=== PATIENT | female | born 1960 | race Caucasian/White ===

== ENCOUNTER 2016-04-13 06:44 | Inpatient (IN) ==
--- NOTE | 2016-04-13 07:43 | Discharge Summary ---
<Saniya Borjas - Last Filed: 04/13/16 10:08> Date of Encounter: 04/13/16 - Discharge Diagnosis (1) Loosening of shoulder joint prosthesis Priority: Primary Status: Acute Qualifiers: Encounter type: subsequent encounter Qualified Code(s): T84.038D - Mechanical loosening of other internal prosthetic joint, subsequent encounter; Z96.619 - Presence of unspecified artificial shoulder joint (2) Diabetes Status: Acute Qualifiers: Diabetes mellitus type: type 2 Diabetes mellitus complication status: without complication Diabetes mellitus correction insulin use: unspecified moth exterminator insulin use status Qualified Code(s): E11.9 - Type 2 diabetes mellitus without complications (3) Asthma Status: Chronic Qualifiers: Asthma severity: unspecified severity Asthma complication type: uncomplicated Qualified Code(s): J45.909 - Unspecified asthma, uncomplicated (4) CVA (cerebral vascular accident) Status: Chronic Qualifiers: CVA mechanism: unspecified Qualified Code(s): I63.9 - Cerebral infarction, unspecified (5) Hyperlipidemia Status: Chronic Qualifiers: Hyperlipidemia type: unspecified Qualified Code(s): E78.5 - Hyperlipidemia , unspecified (6) Hypertension Status: Chronic Qualifiers: Hypertension type: unspecified secondary hypertension Qualified Code(s): I15.9 - Secondary hypertension, unspecified; I15 - Secondary hypertension (7) Morbid obesity with BMI of 45.0-49.9, adult Status: Chronic (8) Obstructive sleep apnea Status: Chronic - Discharge Medications Home Medications: Albuterol Sulfate [Albuterol Inhaler] 2 puff IH Q4HR PRN 09/17/15 [History] Aspirin Enteric Coated [Aspirin EC] 81 mg PO DAILY 09/17/15 [History] Atorvastatin [Lipitor] 20 mg PO HS 09/17/15 [History] Clopidogrel [Plavix] 75 mg PO DAILY 09/17/15 [History] Dicyclomine [Bentyl] 20 mg PO QID 09/17/15 [History] Gabapentin [Neurontin] 300 mg PO TID 09/17/15 [History] Insulin Human Regular [HumuLIN R] 20 unit SQ QPM 09/17/15 [History] Insulin NPH, HUMAN [HumuLIN N] 50 unit SQ BID 09/17/15 [History] Liraglutide [Victoza 3-Jose A] 1.8 mg SQ DAILY 09/17/15 [History] Sertraline [Zoloft] 50 mg PO HS 09/17/15 [History] OxyCODONE Immed Rel [Roxicodone 5 MG] 5 - 10 mg PO Q6HR PRN #40 tablet 04/13/16 [Rx] Verapamil HCl [Verapamil ER] 240 mg PO DAILY 04/13/16 [History] Allergies/Adverse Reactions: Allergies lisinopril Allergy (Verified 04/13/16 08:34) Anaphylaxis fluticasone [From Flonase] Adverse Reaction (Verified 04/13/16 08:34) Nose Bleed metformin [From Glucophage] Adverse Reaction (Verified 04/13/16 08:34) Diarrhea Primary care physician: Karen Castorena - Patient Status Disposition: Home, Self-Care Condition: Good - Discharge Instructions Follow Up With: Karen Castorena [Primary Care Provider] - - Hospital Course Hospital course: Ms. Quinn is a 55 year old female - Time Spent with Patient Total time spent providing and/or coordinating discharge services: <Mckinley Serrano - Last Filed: 04/14/16 06:28> Date of Encounter: 04/14/16 Time of Encounter: 06:28 - Discharge Diagnosis (1) Diabetes Priority: Primary Status: Acute Qualifiers: Diabetes mellitus type: type 2 Diabetes mellitus complication status: without complication Diabetes mellitus moth exterminator insulin use: unspecified moth exterminator insulin use status Qualified Code(s): E11.9 - Type 2 diabetes mellitus without complications (2) Morbid obesity with BMI of 45.0-49.9, adult Priority: Secondary Status: Chronic (3) Loosening of shoulder joint prosthesis Priority: Primary Status: Acute Qualifiers: Encounter type: subsequent encounter Qualified Code(s): T84.038D - Mechanical loosening of other internal prosthetic joint, subsequent encounter; Z96.619 - Presence of unspecified artificial shoulder joint (4) Hypertension Priority: Secondary Status: Chronic Qualifiers: Hypertension type: unspecified secondary hypertension Qualified Code(s): I15.9 - Secondary hypertension, unspecified; I15 - Secondary hypertension (5) Hyperlipidemia Priority: Secondary Status: Chronic Qualifiers: Hyperlipidemia type: unspecified Qualified Code(s): E78.5 - Hyperlipidemia , unspecified (6) CVA (cerebral vascular accident) Priority: Secondary Status: Chronic Qualifiers: CVA mechanism: unspecified Qualified Code(s): I63.9 - Cerebral infarction, unspecified (7) Obstructive sleep apnea Priority: Secondary Status: Chronic (8) Asthma Priority: Secondary Status: Chronic Qualifiers: Asthma severity: unspecified severity Asthma complication type: uncomplicated Qualified Code(s): J45.909 - Unspecified asthma, uncomplicated Primary care physician: Karen Castorena - Patient Status Functional capacity at discharge: independent ambulation Overall status at discharge: patient is progressing back to baseline - Hospital Course Hospital course: Ms. Quinn is a 55 year old female The patient had an uneventful postoperative course. They received antibiotics and physical therapy and were discharged in stable condition. There will follow -up in the office in 2 weeks. - Time Spent with Patient Total time spent providing and/or coordinating discharge services:
[2016-04-13] MEDS ORDERED: Albuterol 2.5 MG/3 ML NEBULIZER IH ONE (07:44)
[2016-04-13] MEDS ORDERED: CeFAZolin Pre 2,000 MG/100 ML 2,000 MG/100 ML BAG IVPB ONE (07:44)
[2016-04-13] MEDS ORDERED: Ringers Solution, Lactated 1,000 ML IVC SCH ×2 (07:45→11:32)
--- NOTE | 2016-04-13 08:00 | History & Physical Report ---
Date of Encounter: 04/13/16 Time of Encounter: 08:00 24 Hour HP Update - Instructions Instructions: If the History and Physical is less than 30 days old and was completed prior to A.M. admission and or procedure and has NOT been updated on calendar day of procedure please complete this update prior to performing procedure. - Update Patient reports changes in Medical Condition: No Changes in assessment/condition: No Changes in Medication: No Preop tests/diagnostics Reviewed: Yes Surgery Remains Indicated: Yes Consent for Planned Operative Procedure(s) Verified: Yes - Pre-Operative Checklist Preoperative Checklist Indicated: No Prophylactic Antibiotic Ordered: Yes Is VTE Prophylaxis Indicated?: Yes
[2016-04-13] MEDS ORDERED: CeFAZolin Pre 3,000 MG/100 ML 3,000 MG/100 ML BAG IVPB ONE (08:07)
[2016-04-13] MEDS ORDERED: *HR* FentaNYL (PF) 100 MCG/2 ML VIAL ONE (08:12)
[2016-04-13] MEDS ORDERED: *HR* Propofol 200 MG/20 ML VIAL IVP ONE (08:13)
[2016-04-13] MEDS ORDERED: *HR* Midazolam HCl 2 MG/2 ML VIAL ONE (08:13)
[2016-04-13] MEDS ORDERED: Lidocaine -MPF 2% 2 ML VIAL ONE (08:19)
--- NOTE | 2016-04-13 08:48 | Anesthesia Evaluation PreOp ---
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) Other Medical History: Diabetes Type II (Accu check 234), Other (Morbid Obesity , Anxiety, Depression) Anesthesia History: No Prior Anesthetic Complications Alcohol Use: none Drug use: none Medications and Allergies Albuterol Sulfate [Albuterol Inhaler] 2 puff IH Q4HR PRN 09/17/15 [History] Aspirin Enteric Coated [Aspirin EC] 81 mg PO DAILY 09/17/15 [History] Atorvastatin [Lipitor] 20 mg PO HS 09/17/15 [History] Clopidogrel [Plavix] 75 mg PO DAILY 09/17/15 [History] Dicyclomine [Bentyl] 20 mg PO QID 09/17/15 [History] Gabapentin [Neurontin] 300 mg PO TID 09/17/15 [History] Insulin Human Regular [HumuLIN R] 20 unit SQ QPM 09/17/15 [History] Insulin NPH, HUMAN [HumuLIN N] 50 unit SQ BID 09/17/15 [History] Liraglutide [Victoza 3-Jose A] 1.2 mg SQ DAILY 09/17/15 [History] Sertraline [Zoloft] 50 mg PO HS 09/17/15 [History] OxyCODONE Immed Rel [Roxicodone 5 MG] 5 - 10 mg PO Q6HR PRN #40 tablet 04/13/16 [Rx] Allergies lisinopril Allergy (Verified 04/13/16 08:34) Anaphylaxis fluticasone [From Flonase] Adverse Reaction (Verified 04/13/16 08:34) Nose Bleed metformin [From Glucophage] Adverse Reaction (Verified 04/13/16 08:34) Diarrhea - Meds/Allergy Pre-op Review Medications Reviewed: Yes Allergies Reviewed: Yes Beta Blockers on Current Med List: No Anesthesia Results - Labs Laboratory Tests 04/08/16 04/08/16 10:20 10:20 Hgb 13.0 Hct 41.1 Plt Count 222 Sodium 140 Potassium 4.5 BUN 17 Creatinine 0.87 - Imaging EKG: report reviewed (SR First Degree AV Block) Anesthesia Exam O2 Sat Height 1.68 m Height 1.68 m Height 1.68 m Weight 130.635 kg Weight 130.635 kg Weight 130.635 kg O2 Sat by Pulse Oximetry 95 O2 Sat by Pulse Oximetry 95 O2 Sat by Pulse Oximetry 95 Vital Signs Temp Pulse Resp BP Pulse Ox 98.1 F 85 18 143/72 95 04/13/16 07:18 04/13/16 07:18 04/13/16 07:18 04/13/16 07:18 04/13/16 07:18 Height: 5'6 Weight: 288 lbs NPO (# of Hours): MN - HEENT Pupil (Motor): Pupils equal, EOMI Mallampati: III Denture Type: Upper: Complete Oral Opening: Less than or equal to 3 - CAR SPOTTER LOC: Oriented CAR SPOTTER Motor: Normal RUE, Normal RLE, Normal Face, Deficit LUE (slight weakness), Deficit LLE (slight weakness) CAR SPOTTER Sensory: Normal: RUE, LUE, RLE, LLE, Face - Cardiac Rhythm: Regular Murmur: None JVD: No Carotid Bruit: No - Pulmonary Breath Sounds: bilateral Clear Respiratory Effort: Symmetrical Anesthesia Assess/Plan ASA Score: 3 (MO HTN DM MORE) Modified Stuart Scale for Level of Consciousness: Cooperative, oriented, and tranquil Anesthetic Plan: General, Regional Monitoring Plan: Standard Monitors Recovery Plan: PACU (Discussed GA and RA, Agrees to to proceed)
[2016-04-13] MEDS ORDERED: Tetracaine/PF 20 MG/2 ML AMPUL SPINA ONE (09:06)
[2016-04-13] MEDS ORDERED: Ondansetron 4 MG/2 ML VIAL ONE (09:35)
[2016-04-13] MEDS ORDERED: Ondansetron 4 MG/2 ML VIAL IVP ONE (09:55)
[2016-04-13] MEDS ORDERED: *HR* HYDROmorphone (PF) 1 MG/ML SYRINGE IVP PRN ×2 (09:55→11:32)
[2016-04-13] MEDS ORDERED: *HR* Labetalol 100 MG/20 ML MDV IVP PRN (09:55)
[2016-04-13] MEDS ORDERED: *HR* Promethazine 25 MG/ML VIAL IVP PRN (09:55)
--- NOTE | 2016-04-13 09:55 | Anesthesia Procedures ---
Date of Encounter: 04/13/16 Time of Encounter: 09:53 Procedures: Anesthesia - Nerve Block Procedure Date: 04/13/16 Time: 09:00 Allergies/Adv Reactions: Allergies lisinopril Allergy (Verified 04/13/16 08:34) Anaphylaxis fluticasone [From Flonase] Adverse Reaction (Verified 04/13/16 08:34) Nose Bleed metformin [From Glucophage] Adverse Reaction (Verified 04/13/16 08:34) Diarrhea Pre-op Diagnosis: left shoyulder painful hardware Surgical Procedure: ldft shoulder revision Checklist: Correct Patient Identifier, Correct procedure, History checked Correct side: Left Blood Thinner: Yes Monitor Applied: EKG, BP, Pulse Oximetry Supplemental Oxygen via Nasal Cannula (L/min): 2 Sedation: Versed (mg): 2 Sedation: Fentanyl (mcg): 100 Indication: Post Op Analgesia Block Type: Supraclavicular Catheter placed: No Sterile Technique: Yes Ultrasound used: Yes Anatomy identified: Yes Visual spread of Local: Yes Neuro Stimulation: No Blood on Needle Aspiration: No Smooth Injection of Local: Yes Pain with Injection of Local: No Prep: Chlorhexadine Needle: 22 x 50 mm Stimuplex Local: Other (0.375 bupivicaine) Volume (cc): 30 Number of Attempts: 1 Complications: None/effective block Vitals: see nurses notes
--- NOTE | 2016-04-13 10:39 | Orthopedic Operative Note ---
Date of procedure: 04/13/16 Pre-op diagnosis: painful unstable left hemiarthroplasty Post-op diagnosis: same Procedure: Procedure: Left Revision Total Shoulder replacement reverse Estimated blood loss: 400 cc Hardware:Arthrex baseplate small, 36 lateral glenosphere, 8 stem, 6 metal, 3 constrained Procedural Notes:unstable hemiarthroplasty Operative procedure: The patient was brought to the operating room and placed on the operating room table. The patient was placed in the modified beachchair position. All pressure points were padded appropriately. And the head was stabilized in the neutral position. The operative extremity was prepped and draped in the sterile surgical fashion. The patient received IV antibiotics prior to skin incision. A standard deltopectoral approach was made to the operative shoulder through old incision. Incision was made to the skin and subcutaneous tissue,hemo stasis was obtained with Bovie cautery. Using careful blunt dissection the cephalic vein was identified and mobilized medially. The deltopectoral interval was developed and the clavipectoral fascia was incised. An extensive debridement was performed, and the shoulder was dislocated. Cultures were obtained Using an osteotome to clear out the soft tissue, an attempt at removal was performed this was a well fixed stem. This required a small osteotome at the proximal portion. Stem was removed without incident. 2 super cables were passed around the proximal humerus to gain fixation of the osteotomy. Anterior posterior Bankart retractors proceeded to expose the glenoid. The glenoid guide was seated the centering hole was made the glenoid was reamed with the appropriate small reamer. The glenoid baseplate was seated and secured and locked in place with the locking screws 4.5 and 6.5 cortical screw. The baseplate was irrigated and dried 36 lateral glenosphere was seated and secured. Attention was then turned to the humeral side. The humerus was reamed and broached up to its appropriate size in 20 degrees of retroversion. Trial reduction found the shoulder to be relocatable. Trial components were removed, real implants were cemented in place. Trial reduction found the shoulder to be stable with the appropriate 6 metal and 3 constrained Chantal. The trial implants were removed the real implants were seated and secured in the shoulder was reduced. The patient had excellent motion and excellent stability no shuck. The deep tissue was irrigated with pulse irrigation deltopectoral interval was closed with #2 PDS . Superficially the subcutaneous tissue was closed with 0 PDS suture, the skin was closed with Dermabond and skin mayte. The patient placed sterile dressing, postoperative brace extubated and transferred to the recovery room in stable condition. Anesthesia: GETA Surgeon: Mckinley Serrano Condition: stable Disposition: PACU
[2016-04-13 11:21] LABS: Hematocrit 39.2 % (35.3-44.9); Hemoglobin 12.4 g/dL (11.5-15.4)
--- NOTE | 2016-04-13 11:31 | Anesthesia Evaluation Post Op ---
Date of Encounter: 04/13/16 Time of Encounter: 11:30 - Vital Signs Vital Signs: Vital Signs/O2 Sat/Glucose, Most Current Temp Pulse Resp BP Pulse Ox 04/13/16 11:20 97.2 F L 85 18 135/77 98 04/13/16 11:10 89 18 138/76 96 04/13/16 11:00 93 18 153/68 96 04/13/16 10:50 97.2 F L 96 18 162/70 92 L 04/13/16 09:17 92 16 167/81 98 04/13/16 09:06 87 16 167/78 100 04/13/16 08:20 18 143/72 95 04/13/16 07:54 98.1 F 85 18 143/72 95 - Lungs Lungs: Clear Ascult./Percussion - Airway Airway: Non-obstructed - Cardiovascular Regular Rate - Mental Status Mental Status: Alert & Oriented, Answers Appropriately - Pain Pain Scale: 0 - Nausea Vomiting Nausea Vomiting: Not Present - Hydration Hydration: Ice chips - Discharge PostOp Status: Transfer Patient to floor
[2016-04-13] MEDS ORDERED: Acetaminophen 325 MG TABLET PO PRN (11:32)
[2016-04-13] MEDS ORDERED: Dextrose Gel 15 GM PO PRN ×2 (11:32)
[2016-04-13] MEDS ORDERED: Naloxone 0.4 MG/ML INJ IVP PRN (11:32)
[2016-04-13] MEDS ORDERED: Ondansetron 4 MG/2 ML VIAL IVP PRN (11:32)
[2016-04-13] MEDS ORDERED: *HR* Dextrose 50 % in Water (Syg) 50 ML SYRINGE IVP PRN (11:32)
[2016-04-13] MEDS ORDERED: Sennosides 8.6 MG TABLET PO PRN (11:32)
[2016-04-13] MEDS ORDERED: MOM Conc 10 ML UD.LIQ PO PRN (11:32)
[2016-04-13] MEDS ORDERED: D5% in Water 1,000 ML IV PRN (11:32)
[2016-04-13] MEDS ORDERED: Albuterol Neb 1.25 MG/3 ML VIAL IH ONE (11:32)
[2016-04-13] MEDS ORDERED: Temazepam 15 MG CAPSULE PO PRN (11:32)
[2016-04-13] MEDS ORDERED: *HR* OxyCODONE Immed Rel 5 MG TABLET PO PRN (11:32)
[2016-04-13] MEDS: Aspirin Enteric Coated 81 MG Tablet PO SCH (11:57)
[2016-04-13] MEDS: Liraglutide [Victoza 3-Pak] 1.2 MG SQ SCH (12:46)
[2016-04-13] MEDS: Gabapentin 300 MG CAPSULE PO SCH ×3 (12:47→21:15)
[2016-04-13] MEDS ORDERED: Insulin NPH 100 UNIT/ML (x5UNIT) SQ ONE (13:30)
[2016-04-13] MEDS: Insulin LISPRO 300 UNITS/3 ML VIAL SQ SCH ×2 (13:52→16:56)
[2016-04-13] MEDS: ceFAZolin 3,000 MG in D5% in Water 100 ML IVPB SCH (15:35)
[2016-04-13] MEDS ORDERED: Insulin Regular, Human 100 UNIT/ML SQ SCH (17:00)
[2016-04-13] MEDS: *HR* Enoxaparin 30 MG/0.3 ML SYRINGE SQ SCH (17:01)
[2016-04-13] MEDS ORDERED: *HR* Enoxaparin 30 MG/0.3 ML SYRINGE SQ SCH (18:00)
[2016-04-13] MEDS ORDERED: Insulin LISPRO 300 UNITS/3 ML VIAL SQ SCH (21:00)
[2016-04-13] MEDS: *HR* OxyCODONE Immed Rel 5 MG TABLET PO PRN (21:15)
[2016-04-14] MEDS: ceFAZolin 3,000 MG in D5% in Water 100 ML IVPB SCH (00:33)
[2016-04-14] MEDS: *HR* OxyCODONE Immed Rel 5 MG TABLET PO PRN (02:54)
[2016-04-14 06:03] LABS: Hematocrit 36.1 % (35.3-44.9); Hemoglobin 11.6 g/dL (11.5-15.4)
[2016-04-14] MEDS: *HR* Enoxaparin 30 MG/0.3 ML SYRINGE SQ SCH (06:08)
--- NOTE | 2016-04-14 06:29 | Orthopedics Progress Note ---
Date of Encounter: 04/14/16 Time of Encounter: 06:29 - Assessment and Plan (1) Diabetes Current Visit: Yes Status: Acute Qualifiers: Diabetes mellitus type: type 2 Diabetes mellitus complication status: without complication Diabetes mellitus mcfp insulin use: unspecified mcfp insulin use status Qualified Code(s): E11.9 - Type 2 diabetes mellitus without complications (2) Morbid obesity with BMI of 45.0-49.9, adult Current Visit: Yes Status: Chronic (3) Loosening of shoulder joint prosthesis Current Visit: Yes Status: Acute Qualifiers: Encounter type: subsequent encounter Qualified Code(s): T84.038D - Mechanical loosening of other internal prosthetic joint, subsequent encounter; Z96.619 - Presence of unspecified artificial shoulder joint (4) Hypertension Current Visit: Yes Status: Chronic Qualifiers: Hypertension type: unspecified secondary hypertension Qualified Code(s): I15.9 - Secondary hypertension, unspecified; I15 - Secondary hypertension (5) Hyperlipidemia Current Visit: Yes Status: Chronic Qualifiers: Hyperlipidemia type: unspecified Qualified Code(s): E78.5 - Hyperlipidemia , unspecified (6) CVA (cerebral vascular accident) Current Visit: Yes Status: Chronic Qualifiers: CVA mechanism: unspecified Qualified Code(s): I63.9 - Cerebral infarction, unspecified (7) Obstructive sleep apnea Current Visit: Yes Status: Chronic (8) Asthma Current Visit: Yes Status: Chronic Qualifiers: Asthma severity: unspecified severity Asthma complication type: uncomplicated Qualified Code(s): J45.909 - Unspecified asthma, uncomplicated Subjective Interval history: Patient was seen this morning doing well without complaints. Afebrile vital signs stable. Operative extremity: Neurovascularly intact Dressing clean dry and intact Calves nontender Assessment and plan: Continue with postoperative care Hematocrit 36 discharged today Objective Vital signs: Vital Signs Temp Pulse Resp BP Pulse Ox 04/14/16 04:10 99.1 F 104 21 160/76 93 L 04/14/16 00:53 93 L 04/14/16 00:13 100 F H 100 15 133/76 91 L 04/13/16 20:12 98.2 F 91 16 141/77 97 04/13/16 15:32 97.9 F 84 16 145/71 97 04/13/16 14:08 98.7 F 87 16 113/46 95 04/13/16 12:55 97.0 F L 89 16 106/57 96 04/13/16 12:16 97.7 F 84 16 127/63 98 04/13/16 11:54 14 99 04/13/16 11:34 97.9 F 84 16 117/64 95 04/13/16 11:20 97.2 F L 85 18 135/77 98 04/13/16 11:10 89 18 138/76 96 04/13/16 11:00 93 18 153/68 96 04/13/16 10:50 97.2 F L 96 18 162/70 92 L 04/13/16 09:17 92 16 167/81 98 04/13/16 09:06 87 16 167/78 100 04/13/16 08:20 18 143/72 95 04/13/16 07:54 98.1 F 85 18 143/72 95 04/13/16 07:18 98.1 F 85 18 143/72 95 Intake and Output 04/13/16 04/13/16 04/14/16 15:59 23:59 07:59 Intake Total 0 / 0 460 / 460 100 / 100 Output Total 201 / 201 300 / 300 400 / 400 Balance -201 / -201 160 / 160 -300 / -300 Intake: IV Fluids 100 / 100 100 / 100 Ancef 3,000 MG In 100 / 100 100 / 100 Dextrose 5% 100 ML @ 200 mls/hr IVPB Q8HR [facility] Rx#: [id number] Oral 0 / 0 360 / 360 Output: Urine 300 / 300 400 / 400 Estimated Blood Loss 200 / 200 Right Nephrostomy Other: Meal Dinner Percent of Meal Consumed 100% # Voids 1 1 1 Blood Glucose* 179 118 - Labs CBC & BMP: 04/14/16 05:42 Labs: Abnormal lab results POC Glucose 179 (58-89) H 04/13/16 12:32 - VTE Documentation of Mechanical Device: Venous foot pump, device Consult Discharge Plan - Plan Referrals: Karen Castorena [Primary Care Provider] -
[2016-04-14 06:34] VITALS: BP 135/73
[2016-04-14] MEDS ORDERED: Insulin NPH 100 UNIT/ML (x5UNIT) SQ SCH ×2 (07:30)
[2016-04-14] MEDS: Aspirin Enteric Coated 81 MG Tablet PO SCH (08:10)
[2016-04-14] MEDS: Gabapentin 300 MG CAPSULE PO SCH (08:10)
[2016-04-14] MEDS: Insulin LISPRO 300 UNITS/3 ML VIAL SQ SCH (08:11)
[2016-04-14] MEDS: Liraglutide [Victoza 3-Pak] 1.2 MG SQ SCH (08:11)
== END 2016-04-14 10:29 | disposition home or self-care (01) | DRG 483 ==
LOC: SAMDAY 06:44 → 3NENU 11:29
PROVIDERS: ADMIT Orthopaedic Surgery; ATTEND Orthopaedic Surgery